=== PATIENT | male | born 1965 | race African-American/Black ===

== ENCOUNTER 2020-09-29 07:16 | Inpatient (IN) | payer OTHER ==
[~2020-09-29] VITALS: Ht 182.9 cm; Wt 90.3 kg
--- NOTE | ~2020-09-29 | HC ---
[facility] [place] [address] CONSULTATION Name: GIL QUINTEROS Room #: 212-P [facility] M.R.#: [id number] Admission: 09/29/20 Attend Phys: Angeles Wylie MD Discharge: Date of : 63 Report #: [id number] THIS REPORT FOR: cc: Tye Dunn MD, Amit MD Lammoglia, Francisco J. MD ~ DATE OF SERVICE: 09/29/2020 REASON FOR CONSULTATION: Chest pain. HISTORY OF PRESENT ILLNESS: This is a very pleasant 55-year-old gentleman who presented with development of chest discomfort. The patient states he does have a history of congestive heart failure, hypertension, occasional smoker and developed substernal discomfort described initiated as sharp, stabbing sensations, which persisted. It was in the center of the chest and it radiated up into the left wall of the chest. The patient states that he noticed it, then became a pressure and heavy sensation. He has not had anything similar to this in the past. Walking made it worse, although movement in fact did not seem to affect it. Upon further questioning, he had been evaluated 4 or 5 years ago for acute onset of shortness of breath and was diagnosed to have cardiomyopathy and heart failure. He is on guideline-directed medical therapy and much better. He has never been discussed ICD placement or cardiomyopathy, etc. He does not recall the specifics of his workup in [place]. He did state that today he became lightheaded, dizzy, although did not feel any overt palpitations. He denies any significant dependent or nondependent edema. He did have cataract surgery. He did not have any immediate postop issues. Upon further questioning, he states that he does restrict his fluid, although recently had not and had noticed a 2 to 3 pounds weight gain on a daily basis over the last several days. ALLERGIES: No known drug allergies. PAST MEDICAL HISTORY: Significant for: 1. Hypertension. 2. Congestive heart failure with procedure performed, the specifics of which he was unable to convey. PAST SURGICAL HISTORY: Significant for: 1. Cardiac catheterization. 2. Bilateral cataract surgery. REVIEW OF SYSTEMS: Except for symptoms previously mentioned and those commensurate with comorbid state, the 10-point review of system is negative. SOCIAL HISTORY: The patient occasionally smokes, occasionally drinks alcohol. [address] [address] CONSULTATION Name: GIL QUINTEROS ROBIN Room #: [address] [place] [address] M.R.#: [id number] Admission: 09/29/20 Attend Phys: Angeles Wylie MD Discharge: Date of : 63 Report #: [id number] He is . Does not use recreational drugs. PHYSICAL EXAMINATION: GENERAL: Well-developed, well-nourished -Macanese male, resting comfortably, in no acute distress. HEENT: Normocephalic, atraumatic. Pupils are equal, round, reactive to light and accommodation. Extraocular muscles are intact. Sclerae and conjunctivae are anicteric. NECK: JVD is normal. Carotid upstrokes are bilaterally symmetrical. No bruits are heard. No thyromegaly. No lymphadenopathy. LUNGS: Clear to auscultation. No wheezes, rhonchi or crackles. No CVA tenderness. CARDIAC: Demonstrates a regular rhythm. Normal first and second heart sounds. Soft systolic murmur at the apex. ABDOMEN: Soft, nontender, nondistended. Normal bowel sounds. EXTREMITIES: Without cyanosis, clubbing or edema. Distal pulses are intact. DTR symmetrical. NEUROLOGIC: Cranial nerves 2-12 are grossly normal and symmetrical. PSYCHIATRIC: Alert, oriented with normal affect. SKIN: Warm and dry. ELECTROCARDIOGRAM: Sinus rhythm, nonspecific T-wave inversion in the inferior leads. LABORATORY DATA: Noted and reviewed in the chart with an initial troponin of less than 0.06. RADIOLOGIC: Chest x-ray failed to demonstrate any acute abnormalities with possibly some mild bibasilar atelectasis. Spiral CT performed demonstrated no masses or nodules. IMPRESSION AND PLAN: 1. Chest pain, etiology of which is uncertain. I do not know whether this has to do with progression of his moderate coronary artery disease or noncardiac origin. Either way, we will rule out for myocardial infarction. We will get 2D echo Doppler to evaluate more fully left ventricular function. 2. Cardiomyopathy history, on appropriate medications. Continue on the current regimen. 3. Heart failure, on guideline-directed medical therapy. He does not appear to be overly fluid up currently and in view of this will not proceed with any further diuresis. By: 2250 2347 Nima White MD /nt
[2020-09-29 07:17] VITALS: BP 146/86
[2020-09-29 07:38] LABS: ABSOLUTE NEUTROPHILS 2.6 thou/uL (1.4-8.2); BASOPHILS 1.6 % (0.0-2.0); HEMATOCRIT 45.2 % (42.0-52.0); HEMOGLOBIN 15.6 gm/dL (14.0-18.0); LYMPHOCYTES 29.6 % (24.0-44.0); MCH 32.9 pg (26.0-34.0); MCHC 34.4 g/dL (28.0-37.0); MCV 95.6 fL (80.0-100.0); MONOCYTES 12.8 % (1.0-8.0); PLATELET COUNT 255 thou/uL (150-400); RBC 4.72 mil/uL (4.50-6.00); RDW 13.6 % (10.5-14.5); WBC 4.8 thou/uL (4.0-11.0)
[2020-09-29 07:43] LABS: ANION GAP 14 mmol/L (7-16); BUN 15 mg/dL (7-18); CALCIUM 8.6 mg/dL (8.5-10.1); CHLORIDE 104 mmol/L (98-107); CO2 20 mmol/L (21-32); CREATININE 1.5 mg/dL (0.7-1.3); GLUCOSE 140 mg/dL (74-106); POTASSIUM 3.9 mmol/L (3.5-5.1); SODIUM 138 mmol/L (136-145)
[2020-09-29 07:54] LABS: ALBUMIN 3.8 g/dL (3.4-5.0); AMYLASE 82 U/L (25-115); DIRECT BILIRUBIN < 0.1 mg/dL (<0.1-0.2); LIPASE 126 U/L (73-393); MAGNESIUM 2.1 mg/dL (1.8-2.4); PHOSPHORUS 1.9 mg/dL (2.6-4.7); SGOT 33 U/L (15-37); SGPT 50 U/L (16-63); TOTAL BILIRUBIN 0.2 mg/dL (0.2-1.0); TOTAL PROTEIN 8.2 g/dL (6.4-8.2); TROPONIN-I <0.06 ng/mL (<0.06)
[2020-09-29 08:35] LABS: URINE BILIRUBIN NEGATIVE (Negative); URINE BLOOD TRACE (Negative); URINE CLARITY CLEAR; URINE COLOR YELLOW; URINE GLUCOSE-RANDOM* NEGATIVE (Negative); URINE KETONES NEGATIVE (Negative); URINE LEUKOCYTES-REFLEX TRACE (Negative); URINE NITRITE-REFLEX NEGATIVE (Negative); URINE PROTEIN (DIPSTICK) NEGATIVE (Negative); URINE SPECIFIC GRAVITY 1.015 (1.005-1.035); URINE UROBILINOGEN 0.2 E.U./dl (0.2-1.0)
[2020-09-29 08:41] VITALS: BP 120/66
[2020-09-29] MEDS ORDERED: OMEPRAZOLE 20 M20 M1 PO (09:54)
[2020-09-29] MEDS ORDERED: ASA81BEC PO (09:54)
[2020-09-29] MEDS ORDERED: TYLENOL EXTRA500 MG PO (09:54)
[2020-09-29] MEDS ORDERED: CLARITIN10 M3 PO (09:55)
[2020-09-29] MEDS ORDERED: SLEEP AID50 MG PO (09:55)
[2020-09-29] MEDS ORDERED: SILDENAFIL CIT100 MG PO (09:56)
[2020-09-29] MEDS ORDERED: LIPITOR80 MG PO (10:11)
[2020-09-29] MEDS ORDERED: LUBRICANT 0.5-1 EACH EA. EYE (10:12)
[2020-09-29] MEDS ORDERED: CARVEDILOL25 MG PO (10:12)
[2020-09-29] MEDS ORDERED: VOLTAREN GEL 1100 G1 OTIC (10:14)
[2020-09-29] MEDS ORDERED: LASIX 40 MG TAB40 MG PO (10:15)
[2020-09-29] MEDS ORDERED: ONDANSETRON HCL8 MG PO (10:16)
[2020-09-29] MEDS ORDERED: PREDNISOLONE ACE5 M2 OTIC (10:18)
[2020-09-29] MEDS ORDERED: ENTRESTO 97 MG1 EACH PO (10:19)
[2020-09-29] MEDS ORDERED: SERTRALINE HCL100 MG PO (10:19)
[2020-09-29] MEDS ORDERED: ALDACTAZIDE 251 EAC1 PO (10:20)
[2020-09-29] MEDS ORDERED: DESYREL150 MG PO (10:21)
[2020-09-29] MEDS ORDERED: TOPAMAX100 MG PO (10:21)
--- NOTE | 2020-09-29 10:47 | NUR ---
HANDOFF REPORT SENT TO THE FLOOR AT 1045 HOURS
[2020-09-29 10:58] VITALS: BP 144/89
--- NOTE | 2020-09-29 13:19 | NUR ---
Patient arrived from ER due to chest pain. Vital signs taken and recorded. Seen and examined by Dr Wylie and wanted patient to be transferred to CCU- household refrigerator mechanic Maryan contacted by physician. Patient transferred to 212- via wheelchair with his personal belongings. Report given to WIL Allen.
[2020-09-29 16:23] VITALS: BP 134/86
--- NOTE | 2020-09-29 18:21 | NUR ---
PT CAME TO FLOOR AROUND 1130 AFTER BEING ON 4TH FLOOR, ASSESSED, PT STATES CHEST PAIN LEVEL ABOUT 3, DR PRINCE AWARE, GAVE NITRO TWICE THIS AFTERNOON FOR CHEST PAIN, MORPHINE FOR PAIN ONCE, TYLENOL FOR CHRONIC NECK/SHOULDER PAIN, CAME, DR PRINCE SPOKE WITH BOTH AND EXPLAINED POC, ECHO TO BE DONE TOMORROW, POSSIBLE CATH ON THURSDAY, REQUESTED MEDICAL RECORDS FROM PREVIOUS CARDIAC PROCEDURE FROM [facility].
[2020-09-29 20:35] VITALS: BP 119/82
[2020-09-30 04:22] VITALS: BP 110/76
--- NOTE | 2020-09-30 08:00 | NUR ---
ASSESSMENTS CHARTED, MEDS CHARTED GIVEN. PATIENT HAD SEVERAL BOUTS OF ANGINA DURING THE SHIFT, NITRO TABS WERE GIVEN WITH RELIEF OF PAIN WHILE BLOOD PRESSURE WAS MONITORED. WAITING FOR MEDICAL HISTORY FROM HOSPITAL IN [place] BEFORE PATIENT IS TAKEN TO SILVERWARE ASSEMBLER ON THURSDAY. FALL PRECAUTIONS IN PLACE DURING SHIFT.
--- NOTE | 2020-09-30 08:04 | NUR ---
ASSESSMENT CHARTED, MEDS CHARTED GIVEN. PATIENT IS USING [employer]ONKER TO HELP CLEAR THICK SECRETIONS. PATIENT IS HOPEFUL OF GOING HOME TODAY SINCE IVC FILTER IS IN PLACE. PATIENT POSITIVE FOR HEP C.
[2020-09-30 08:07] VITALS: BP 137/91
[2020-09-30 09:38] LABS: POTASSIUM 3.9 mmol/L (3.5-5.1)
[2020-09-30 09:39] LABS: CALCIUM 8.6 mg/dL (8.5-10.1); CREATININE 1.8 mg/dL (0.7-1.3)
[2020-09-30 11:15] VITALS: BP 103/70
--- NOTE | 2020-09-30 11:15 | 2DMMODE ---
[facility] [place] [address] 2 D/M-MODE ECHOCARDIOGRAM Name: GIL QUINTEROS ROBIN Room #: 212-P [facility] M.R.#: [id number] Admission: 09/29/20 Attend Phys: Angeles Wylie MD Discharge: Date of : 63 Report #: [id number] THIS REPORT FOR: cc: Tye Dunn MD, Amit MD Lammoglia, Francisco J. MD ~ APPROVED REPORT Study performed: 09/30/2020 08:36:27 EXAM: Comprehensive 2D, Doppler, and color-flow Echocardiogram Patient Location: In-Patient Room #: 212 Status: routine BSA: 2.13 HR: 54 bpm BP: 137/91 mmHg Other Information Study Quality: Good Risk Factors: Cardiac Risk Factors: HTN Indications Congestive Heart Failure Cardiomyopathy Chest Pain 2D Dimensions IVSd: 11.08 (7-11mm) LVOT Diam: 22.39 (18-24mm) LVDd: 42.53 mm PWd: 15.90 (7-11mm) Ascending Ao: 32.57 (22-36mm) LVDs: 24.18 (25-40mm) Left Atrium: 32.72 (27-40mm) Aortic Root: 33.40 mm IVC: 1.00 mm Volumes Left Atrial Volume (Systole) Single Plane 4CH: 22.93 mL Single Plane 2CH: 45.62 mL Aortic Valve AoV Peak Jeet.: 1.30 m/s AO Peak Gr.: 6.73 mmHg LVOT Max P.65 mmHg [facility] [address] [place] [address] 2 D/M-MODE ECHOCARDIOGRAM Name: GIL QUINTEROS Room #: 212-P ADM IN M.R.#: [id number] Admission: 09/29/20 Attend Phys: Tab Rothman Discharge: Date of : 63 Report #: [id number] LVOT Max V: 1.19 m/s CAMMIE Vmax: 3.61 cm2 AI Vmax: 4.12 m/s AI [place]: 1.05 m/s2 AI PHT: 1198.07 ms Mitral Valve MV Peak Gr.: 4.90 mmHg MV Mean Gr.: 1.73 mmHg E/A Ratio: 1.4 MV Decel. Time: 664.20 ms MV E Max Jeet.: 0.52 m/s MV A Jeet.: 0.36 m/s MV Max Jeet.: 1.11 m/s MV Mean Jeet.: 0.58 m/s MV VTI: 403.74 mm MV PHT: 192.62 ms IVRT: 117.65 ms TDI E/Lateral E': 5.20 E/Medial E': 6.50 Medial E' Jeet.: 0.08 m/s Lateral E' Jeet.: 0.10 m/s Pulmonary Valve PV Peak Jeet.: 0.90 m/s PV Peak Gr.: 3.26 mmHg Pulmonary Vein P Vein S: 0.51 m/s P Vein A: 0.23 m/s P Vein D: 0.53 m/s P Vein A Dur.: 129.2 msec P Vein S/D Ratio: 0.96 Tricuspid Valve TR Peak Jeet.: 2.65 m/s RAP Estimate: 10.00 mmHg TR Peak Gr.: 28.02 mmHg Left Ventricle The left ventricle is normal size. Mild concentric left ventricular hypertrophy. The left ventricular systolic function is normal. The left ventricular ejection fraction is within the normal range. LVEF is 65-70%. Right Ventricle The right ventricle is normal size. The right ventricular systolic function is normal. [facility] [address] [place] [address] 2 D/M-MODE ECHOCARDIOGRAM Name: GIL QUINTEROS Room #: 212-P [facility] IN ..#: [id number] Admission: 09/29/20 Attend Phys: Tab Rothman Discharge: Date of : 63 Report #: [id number] The left atrium size is normal. The right atrium size is normal. Aortic Valve The aortic valve is normal in structure. Mild aortic regurgitation. There is no aortic valvular stenosis. Mitral Valve The mitral valve is normal in structure. Mild mitral regurgitation. No evidence of mitral valve stenosis. Tricuspid Valve The tricuspid valve is normal in structure. Mild to moderate tricuspid regurgitation. Pulmonic Valve The pulmonary valve is normal in structure. Trace to mild pulmonic regurgitation. Great Vessels The aortic root is normal in size. IVC is normal in size and collapses >50% with inspiration. Pericardium There is no pericardial effusion. <Conclusion> The left ventricle is normal size. Mild concentric left ventricular hypertrophy. LVEF is 65-70%. The aortic valve is normal in structure. Mild aortic regurgitation. The mitral valve is normal in structure. Mild mitral regurgitation. The tricuspid valve is normal in structure. Mild to moderate tricuspid regurgitation. The pulmonary valve is normal in structure. Trace to mild pulmonic regurgitation. There is no pericardial effusion. <ELECTRONICALLY SIGNED> By: Nima White MD 09/30/20 1114 1114 111 Nima White MD /INF
--- NOTE | 2020-09-30 11:44 | NUR ---
CARE ASSUMED AT 0700, PT ALERT AND ORIENTED X4, PT STATED HE HAS BEEN HAVE INTERMITTENT CHEST PAIN, WHICH HE GETS NITRO FOR. IS AWARE AND POSSIBLE HEART CATH TOMORROW. DR. HOOPER MADE AWRE. PT USES HIS URINAL AND AND STANDBY TO BATHROOM. PT IS ON ROOM AIR, NO SIGNS OF DISTRESS NOTED. USES CALL LIGHT APPROPRIATELY. DENIES ANY NEEDS AT MOMENT. WILL CONTINUE TO [facility].
[2020-09-30 15:10] VITALS: BP 118/83
[2020-09-30 20:00] VITALS: BP 121/76
[2020-10-01] VITALS: BP 111/76
[2020-10-01 03:39] LABS: CALCIUM 8.6 mg/dL (8.5-10.1); CREATININE 1.8 mg/dL (0.7-1.3); POTASSIUM 3.8 mmol/L (3.5-5.1)
[2020-10-01 04:00] VITALS: BP 126/76
--- NOTE | 2020-10-01 04:34 | NUR ---
PT IS ALERT AND ORIENTED X4. LUNGS ARE CLEAR. ON 2LITERS NASAL CANULA. SINUS RHTYM TO SINUS ELY ON THE PROPERTY CLAIMS MANAGER. PT SLEEPING THIS AM SLIGHT CHEST PAIN NOTED. NO EMDEMA OR SKIN ISSUES NOTED. NPO SINCE MIDNIGHT. ABDOMEN IS ROUND BOWEL SOUNDS ACTIVE X4. CALL LIGHT WITHIN REACH IF NEEDS ASSISTANCE PER NURISNG STAFF
--- NOTE | 2020-10-01 07:23 | EKG ---
[address] [address] ELECTROCARDIOGRAM REPORT Name: QUINTEROSGIL Room #: 212- ADM IN M.R.#: [id number] Admission: 09/29/20 Attend Phys: Angeles Wylie MD Discharge: Date of : 63 Report #: [id number] [facility] ED Test Date: 2020-09-29 Test Time: 07:14:21 Pat Name: GIL QUINTEROS Department: Room: [facility] Gender: M Land Surveying Manager: FELICITY OLIVEIRA : 1965 Requested By: Kashmir Lacey Order Number: [id number] MD: oTm Lawrence Measurements Intervals [place] Rate: 85 P: 85 ME: 166 QRS: 58 QRSD: 75 T: -27 QT: 341 QTc: 406 Interpretive Statements Sinus rhythm Nonspecific T abnormalities, inferior leads Baseline wander in lead(s) V1,V2,V3,V4,V6 No previous ECG available for comparison Electronically Signed On 10-01-2020 7:23:45 ANNEALER HELPER by Tom Lawrence [email or web address] <ELECTRONICALLY SIGNED> By: Tom Lawrence MD, [facility] 10/01/20 0723 3 3 Tom Lawrence MD, [facility] /EPI
--- NOTE | 2020-10-01 07:24 | EKG ---
[address] [address] ELECTROCARDIOGRAM REPORT Name: QUINTEROSGIL Room #: 212-P ADM IN M.R.#: [id number] Admission: 09/29/20 Attend Phys: Angeles Wylie MD Discharge: Date of : 63 Report #: [id number] [facility] [place] [facility] Test Date: 2020-09-29 Test Time: 14:34:01 Pat Name: GIL QUINTEROS Department: Room: 212 P Gender: M Md Psychiatry: : 1965 Requested By: Nima White Order Number: [id number] MD: Tom Lawrence Measurements Intervals [place] Rate: 64 P: 60 [place]: 158 QRS: 19 QRSD: 79 T: -9 QT: 385 QTc: 398 Interpretive Statements Sinus rhythm Probable left atrial enlargement Compared to ECG 09/29/2020 07:14:21 T-wave abnormality no longer present Electronically Signed On 10-01-2020 7:24:36 POLICY ANALYST by Tom Lawrence [email or web address] <ELECTRONICALLY SIGNED> By: Tom Lawrence MD, [facility] 10/01/20 0724 1434 1434 Tom Lawrence MD, FACC /EPI
[2020-10-01 14:00] VITALS: BP 126/76
--- NOTE | 2020-10-01 19:06 | NUR ---
AAOX4. C/O HUNGER; NPO SINCE MIDNIGHT FOR CARDIAC CATH. POST CATH RIGHT GROIN PUNCTURE SITE CDI. SR/SB PER TELE. FALL PRECAUTIONS IN PLACE.
[2020-10-01 19:52] VITALS: BP 120/75
[2020-10-02 03:24] VITALS: BP 128/84
[2020-10-02 05:24] LABS: CALCIUM 8.3 mg/dL (8.5-10.1); CREATININE 1.5 mg/dL (0.7-1.3); POTASSIUM 3.9 mmol/L (3.5-5.1)
[2020-10-02 08:05] VITALS: BP 131/88
[2020-10-02] MEDS ORDERED: SPIRONOLACTONE25 MG PO (08:49)
[2020-10-02] MEDS ORDERED: LASIX 40 MG TAB40 MG PO (08:49)
[2020-10-02 10:50] VITALS: BP 131/88
[2020-10-02] MEDS ORDERED: ENTRESTO 97 MG1 EACH PO (12:22)
[2020-10-02 12:26] VITALS: BP 133/84
[2020-10-02 14:33] VITALS: BP 131/88
--- NOTE | 2020-10-02 14:33 | NUR ---
PATIENT DISCHARGED AT 1401. PATIENT TRANSPORTED BY RN VIA WHEELCHAIR TO ER ENTRANCE. PATIENT LEFT WITH IN OWN CAR. ALL BELONGINGS ACCOUNTED FOR AND TAKEN BY PATIENT AND HIS .
--- NOTE | 2020-10-09 11:52 | CATHLAB ---
[facility] [place] [address] INVASIVE PROCEDURE REPORT Name: GIL QUINTEROS Room #: 212-P DIS IN M.R.#: [id number] Admission: 09/29/20 Attend Phys: Angeles Wylie MD Discharge: 10/02/20 Date of : 63 Report #: [id number] THIS REPORT FOR: cc: Tye Dunn MD, Amit MD Lammoglia, Francisco J. MD ~ APPROVED REPORT Study performed: 10/01/2020 12:30:04 Patient Details Patient Status: In-Patient Room #: 212 The patient is a 55 year-old male Event Personnel Nima White Security Sme, Judi Echols RTR Monitor, Chava Waldron RTR ScrubFrancisco Kirsten RN magnetic doctor Performed Art Access - R femoral artery* Left Heart Cath w/or w/o Coronaries [id number] [facility] [address] Initial Mod Sed Same Phys/QHP Gr [id number] 85473 Mod Sed Same Phys/QHP Ea 135357 Hemostasis with Manual pressure, supervision of conscious sedation Indication Cardiomyopathy Procedure Narrative The Right Groin^ was infiltrated with 1% Lidocaine subcutaneous anesthesia. A PINNACLE 4FR Sheath #[id number] sheath was inserted into the RFA^. Coronary angiography was performed using coronary diagnostic catheters. The right coronary system was accessed and visualized with a JR4 catheter. The left coronary system was accessed and visualized with a JL4 catheter. The left ventricle was accessed and visualized with a PIGTAIL catheter. Hemostasis was obtained with manual pressure following sheath removal without any complications. The patient tolerated the procedure well and there were no complications associated with the procedure. There was no hematoma. Intraoperative Conscious Sedation Sedation start time: 12:20 Case end Time: [facility] [address] [place] [address] INVASIVE PROCEDURE REPORT Name: GIL QUINTEROS HUMBLE Room #: 212-P [facility] IN ..#: [id number] Admission: 09/29/20 Attend Phys: Tab Rothman Discharge: 10/02/20 Date of : 63 Report #: [id number] 12:52 Versed 2 mg Fluoro Time: 2.70 minutes Dose: DAP 2892.00 cGycm2 821 mGy Contrast Type and Amount: Omnipaque 50 ml Coronary Angiography The patient's coronary anatomy is right dominant. Diagnostic Cath Left Main Large-caliber vessel normal origin bifurcates left anterior descending left circumflex. Free of high-grade disease LAD Moderate caliber type III vessel which courses in the anterior anterior ventricular sulcus. His course is tortuous and the gives rise of diagonal and septal branches. There is no high-grade lesions noted. Diagonal 1 Small to moderate caliber vessel coursing on the anterolateral aspect of the left ventricle free of high-grade disease. Is tortuous in its course Diagonal 2 Insignificant caliber vessel Circumflex Large-caliber vessel which gives rise to a small insignificant caliber first marginal per the second marginal is a large caliber vessel with multiple branches as it courses around the lateral and lateral posterior aspect of the left ventricle. The circumflex and terminates a small posterior wall branch OM1 Small insignificant caliber vessel OM2 Large-caliber vessel with numerous branches without high-grade lesions but tortuous in its course Right Coronary Small to moderate caliber vessel of normal origin. Has a proximal osman's crook deformity as it proceeds to the acute margin giving rise to a smaller RV marginal branch and terminating a posterior wall branch that appears to supply the septum R PDA Small to moderate caliber vessel without high-grade lesions noted Left Ventriculography Left Ventriculography was not performed. Hemodynamics The aortic pressure is 108/82 mmHg with a mean of 92 mmHg. The left ventricular pressure is 118/8 mmHg with a mean of mmHg. The left ventricular end diastolic pressure is 15 mmHg. Conclusion 1. Normal coronary arteries with tortuous course [facility] [address] [place] [address] INVASIVE PROCEDURE REPORT Name: GIL QUINTEROS Room #: 212-P DIS IN M.R.#: [id number] Admission: 09/29/20 Attend Phys: Tab Rothman Discharge: 10/02/20 Date of : 63 Report #: [id number] 2. Abnormal hemodynamics elevated low ventricular end-diastolic pressures Recommendations Optimization of guideline directed medical therapy for cardiomyopathy <ELECTRONICALLY SIGNED> By: Nima White MD 10/09/20 1151 1151 115 Nima White MD /INF
== END 2020-10-02 14:00 | disposition home or self-care (01) | DRG 286 ==
LOC: ER 07:16 → 2N 09:52 → EROBS 09:52 → 4W 11:09 → 2N 11:46
PROVIDERS: Emergency Medicine; Internal Medicine; ADMIT Hospitalist; ATTEND Hospitalist
PROC: 4A023N7 Measurement of Cardiac Sampling and Pressure, Left Heart, Percutaneous Approach (ICD-10-PCS; principal; 2020-10-01)
PROC: B2111ZZ Fluoroscopy of Multiple Coronary Arteries using Low Osmolar Contrast (ICD-10-PCS; principal; 2020-10-01)
DX: I25.110 Atherosclerotic heart disease of native coronary artery with unstable angina pectoris (principal); N17.0 Acute kidney failure with tubular necrosis; I50.22 Chronic systolic (congestive) heart failure; I13.0 Hypertensive heart and chronic kidney disease with heart failure and stage 1 through stage 4 chronic kidney disease, or unspecified chronic kidney disease; N17.9 Acute kidney failure, unspecified; F10.10 Alcohol abuse, uncomplicated; Y90.9 Presence of alcohol in blood, level not specified; F17.210 Nicotine dependence, cigarettes, uncomplicated; I42.9 Cardiomyopathy, unspecified; E78.5 Hyperlipidemia, unspecified; I08.3 Combined rheumatic disorders of mitral, aortic and tricuspid valves; N18.2 Chronic kidney disease, stage 2 (mild); Z20.822 Contact with and (suspected) exposure to COVID-19; Z98.42 Cataract extraction status, left eye; Z98.41 Cataract extraction status, right eye; Z90.49 Acquired absence of other specified parts of digestive tract; Z79.82 Long term (current) use of aspirin; Z79.899 Other long term (current) drug therapy
CPT/HCPCS: 10081

== ENCOUNTER 2021-02-12 22:39 | Emergency (ER) | payer OTHER ==
[~2021-02-12] VITALS: Ht 182.9 cm; Wt 83.9 kg
[~2021-02-12 22:39] MED LIST: ALDACTAZIDE 251 EAC1 PO; ASA81BEC PO; CARVEDILOL25 MG PO; CLARITIN10 M3 PO; DESYREL150 MG PO; ENTRESTO 97 MG1 EACH PO; LASIX 40 MG TAB40 MG PO; LIPITOR80 MG PO; LUBRICANT 0.5-1 EACH EA. EYE; OMEPRAZOLE 20 M20 M1 PO; ONDANSETRON HCL8 MG PO; PREDNISOLONE ACE5 M2 OTIC; SERTRALINE HCL100 MG PO; SILDENAFIL CIT100 MG PO; SLEEP AID50 MG PO; SPIRONOLACTONE25 MG PO; TOPAMAX100 MG PO; TYLENOL EXTRA500 MG PO; VOLTAREN GEL 1100 G1 OTIC
[2021-02-12 22:40] VITALS: BP 125/95
[2021-02-12] MEDS ORDERED: PERCOCET PO (23:00)
[2021-02-12] MEDS ORDERED: PREDNISONE 20 M20 MG PO (23:00)
== END 2021-02-13 01:00 | disposition home or self-care (01) ==
LOC: ER 22:39
DX: M54.41 Lumbago with sciatica, right side (principal); I11.0 Hypertensive heart disease with heart failure; I50.9 Heart failure, unspecified; Z72.89 Other problems related to lifestyle; Z95.818 Presence of other cardiac implants and grafts; Z98.42 Cataract extraction status, left eye; Z98.41 Cataract extraction status, right eye

== ENCOUNTER 2021-03-08 09:53 | Emergency (ER) | payer OTHER ==
[~2021-03-08] VITALS: Ht 182.9 cm; Wt 84.8 kg
[~2021-03-08 09:53] MED LIST changes: +PERCOCET PO; +PREDNISONE 20 M20 MG PO
[2021-03-08 10:02] VITALS: BP 121/75
[2021-03-08] MEDS ORDERED: BACLOFEN 10MG T10 MG PO (11:30)
[2021-03-08] MEDS ORDERED: NORCO5 PO (11:30)
[2021-03-08] MEDS ORDERED: MEDROLDOSEPACK PO (11:30)
== END 2021-03-08 11:50 | disposition home or self-care (01) ==
LOC: ER 09:53
DX: M54.41 Lumbago with sciatica, right side (principal); I11.0 Hypertensive heart disease with heart failure; I50.9 Heart failure, unspecified; Z79.899 Other long term (current) drug therapy; Z90.89 Acquired absence of other organs